=== PATIENT | male | born 1990 | race Caucasian/White ===

== ENCOUNTER 2017-03-24 13:12 | Emergency (ER) | payer SELFPAY ==
[~2017-03-24] VITALS: Ht 180.3 cm; Wt 78.0 kg
[2017-03-24 13:14] VITALS: BP 134/70; PULSE 70; RESP 20; TEMP 98.7; O2SAT 98
[2017-03-24] MEDS ORDERED: CYCL1TAB29 PO (15:08)
--- NOTE | 2017-03-24 15:09 | PD ---
HPI Chief Complaint: Back/ Neck Pain or Injury Time Seen by Provider: 15:00 Travel History International Travel<30 days: No Contact w/Intl Traveler<30days: No Traveled to known affect area: No History of Present Illness HPI 26-year-old male presents emergency department with chief complaint of back pain 7 days. Patient reports last week while at work he was lifting heavy pieces of glass which caused him to have back pain that has been intermittent since. He reports the pain is worse in the mornings and loosens up throughout the day. He denies fever, chills, incontinence, saddle anesthesia, numbness/ tingling/weakness of the extremities. Pain is aggravated by movement and relieved with rest. Patient has tried no home remedies for the pain. [facility] Past Medical History Medical History: Denies Significant Hx Asthma: Yes Diminished Hearing: No Social History Alcohol Use: No Tobacco Use: No Substance Use: No Allergies-Medications (Allergen,Severity, Reaction): Coded Allergies: Aspirin (Verified Allergy, Severe, SWELLING, 03/24/17) Motrin (Verified Allergy, Severe, SWELLING, 03/24/17) Seafood (Verified Allergy, Severe, SWELLING, 03/24/17) Tylenol (Verified Allergy, Severe, SWELLING, 03/24/17) Reported Meds & Prescriptions Reported Meds & Active Scripts Active No Active Prescriptions or Reported Medications Review of Systems Except as stated in HPI: all other systems reviewed are Neg Physical Exam Narrative GENERAL: Well-nourished, well-developed patient. SKIN: Focused skin assessment warm/dry. HEAD: Normocephalic. EYES: No scleral icterus. No injection or drainage. NECK: Supple, trachea midline. No JVD or lymphadenopathy. CARDIOVASCULAR: Regular rate and rhythm without murmurs, gallops, or rubs. RESPIRATORY: Breath sounds equal bilaterally. No accessory muscle use. GASTROINTESTINAL: Abdomen soft, non-tender, nondistended. MUSCULOSKELETAL: No cyanosis, or edema. 5 out of 5 strength in lower extremities. Dorsiflex and plantarflex intact. BACK: without obvious deformity. No CVA tenderness. Tenderness of the paraspinous muscles in the thoracic and lumbar region. No point tenderness along the midline spine. Data Data Last Documented VS Vital Signs Date Time Temp Pulse Resp B/P Pulse Ox O2 Delivery O2 Flow Rate FiO2 03/24/17 13:14 98.7 70 20 134/70 98 Room Air MDM Medical Decision Making Medical Screen Exam Complete: Yes Emergency Medical Condition: Yes Differential Diagnosis Thoracic strain, lumbar strain, herniated disc Narrative Course 26-year-old male with chief complaint of back pain status post work related injury 7 days ago. Patient has not tried any [id number] remedies. He reports he is allergic to aspirin, Tylenol, Motrin. Patient's physical exam is reassuring. He has mild tenderness in the paraspinous muscle regions of the thorax and lumbar spine. No midline tenderness. Patient is ambulatory without difficulty. Patient will be treated for thoracic muscle strain instructed to follow-up his primary care doctor. Patient verbalizes understanding agrees to plan. Diagnosis Primary Impression: Thoracic myofascial strain Qualified Code: S29.019A - Thoracic myofascial strain, initial encounter Referrals: Primary Care Physician Departure Forms: Tests/Procedures, Work Release Enter return to work date: Mar 25, 2017 Scripts Cyclobenzaprine (Flexeril)10 Mg Tab10 Mg PO TID #12 TAB Prov:Marylin Brown 03/24/17 Disposition: 01 DISCHARGE HOME Condition: Stable Marylin Brown Mar 24, 2017 15:09
== END 2017-03-24 15:21 | disposition home or self-care (01) ==
LOC: NEPK 13:12
DX: S29.019A Strain of muscle and tendon of unspecified wall of thorax, initial encounter (principal); J45.909 Unspecified asthma, uncomplicated; X50.0XXA Overexertion from strenuous movement or load, initial encounter; Z88.6 Allergy status to analgesic agent
CPT/HCPCS: 99283